=== PATIENT | female | born 1965 | race Caucasian/White ===

== ENCOUNTER → 2019-02-16 | Outpatient (CLI) | payer OTHER ==
[2019-02-16 09:40] VITALS: BP 130/86; PULSE 70; RESP 18; TEMP 98; BMI 23.8
--- NOTE | 2019-02-16 10:15 | P.HPOB ---
History of Present Illness H&P Date: 02/16/19 Chief Complaint: The patient is here for her routine gynecologic exam. This is a 53-year-old with an LMP of October 2016. The patient is without gynecologic complaints. She denies any postmenopausal bleeding. She has occasional hot flashes and they have never been very bad. Review of Systems The patient has lost 6 pounds over the last year. She denies respiratory, cardiac, or G.I. problems. 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 She is BRCA neg for both types 1&2. History of Any Multi-Drug Resistant Organisms: None Reported Past Surgical History: Section, Tubal Ligation Additional Past Surgical History / Comment(s): 2. Breast biopsies. 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 She is expecting her fourth grandchild in 2019. - Past Family History Sister(s) Family Medical History: Cancer Additional Family Medical History / Comment(s): Breast cancer. Mother Family Medical History: Cancer Additional Family Medical History / Comment(s): Breast cancer. Maternal aunt also had breast cancer. A maternal cousin had ovarian cancer. Brother(s) Family Medical History: Myocardial Infarction ([place]) Father Family Medical History: Congestive Heart Failure (CHF), Diabetes Mellitus Medications and Allergies Home Medications Medication Instructions Recorded Confirmed Type Aspirin 81 mg PO DAILY 02/16/19 02/16/19 History Lisinopril [Prinivil] 5 mg PO HS 02/16/19 02/16/19 History Simvastatin [Zocor] 20 mg PO HS 02/16/19 02/16/19 History Allergies Allergy/AdvReac Type Severity Reaction Status Date / Time latex Allergy Unknown Unverified 02/16/19 09:31 codeine AdvReac Unknown Unverified 02/16/19 09:31 Exam Vital Signs Temp Pulse Resp BP Pulse Ox 02/16/19 09:35 98.0 F 70 18 130/86 99 Intake and Output 02/15/19 02/16/19 02/16/19 22:59 06:59 14:59 Other: Weight 57.153 kg Height 5 feet 1 inch, weight 126 pounds, BMI 23.8. This is a well-developed well-nourished white female who is alert and oriented times 3 in no acute distress. HEENT: Within normal limits. NECK: Supple without mass or thyromegaly. CHEST AND LUNGS: Clear to auscultation. HEART: Regular rate and rhythm. BREASTS: Are without mass or discharge. AXILLARY EXAM: Negative for adenopathy. BACK: Negative for CVA tenderness. ABDOMEN: Soft, nontender, without palpable masses. PELVIC EXAM: Normal external genitalia. Cervix and vagina appear normal with mild atrophy. The cervix appears nulliparous. There is no unusual discharge. There is no evidence of prolapse. The uterus is midposition, nongravid size and nontender. There are no palpable adnexal masses or tenderness. RECTAL EXAM: Rectovaginal exam is negative for mass or tenderness and is negative for occult blood. EXTREMITIES: Nontender. IMPRESSION: 1. 53-year-old menopausal female with normal gynecologic exam. PLAN: 1. Pap smear was performed. 2. Self breast awareness was discussed with the patient. 3. Screening mammogram is due and she states she has an appointment at [facility] for this today. The order slip was given to the patient for this. 4. Osteoporosis prevention was discussed. I have stressed the importance of adequate calcium, vitamin D and regular exercise. Recommended amounts of calcium and vitamin D were also discussed. 5. I have recommended screening colonoscopy based on her age. She will talk to Dr. Roblero about this and see if this can be arranged through his office. 6. She was advised to return in one year for her annual well woman exam.
== END | disposition home or self-care (01) ==
LOC: WWCWWP 09:04
PROVIDERS: ATTEND Obstetrics & Gynecology
DX: Z53.9 Procedure and treatment not carried out, unspecified reason (principal)

== ENCOUNTER → 2020-06-20 | Outpatient (CLI) | payer OTHER ==
[2020-06-20 10:31] VITALS: BP 118/77; PULSE 69; RESP 18; TEMP 98.1
--- NOTE | 2020-06-20 11:22 | P.HPOB ---
History of Present Illness H&P Date: 06/20/20 Chief Complaint: The patient is here for her routine gynecologic exam. This is a 54-year-old with an LMP of 2017. The patient is without gynecologic complaints and denies any postmenopausal bleeding. She does have occasional hot flashes which are not very bad. She has been using the form of Coconut oil it helps with vaginal dryness. Review of Systems The patient's weight has been stable over the last year. She denies respiratory, cardiac, or G.I. problems. 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 She is BRCA neg for both types 1&2. History of Any Multi-Drug Resistant Organisms: None Reported Past Surgical History: Section, Tubal Ligation Additional Past Surgical History / Comment(s): 2. Breast biopsies. 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 - Past Family History Sister(s) Family Medical History: Cancer Additional Family Medical History / Comment(s): Breast cancer. Mother Family Medical History: Cancer Additional Family Medical History / Comment(s): Breast cancer. Maternal aunt also had breast cancer. A maternal cousin had ovarian cancer. Brother(s) Family Medical History: Myocardial Infarction ([place]) Father Family Medical History: Congestive Heart Failure (CHF), Diabetes Mellitus Medications and Allergies Home Medications Medication Instructions Recorded Confirmed Type Aspirin 81 mg PO HS 02/16/19 06/20/20 History Simvastatin [Zocor] 20 mg PO HS 02/16/19 06/20/20 History lisinopriL [Prinivil] 5 mg PO HS 02/16/19 06/20/20 History Calcium Carbonate/Vitamin D3 1,200 mg PO DAILY 06/20/20 06/20/20 History [Calcium 500-Vit D3 15 Mcg (600 Iu)] Allergies Allergy/AdvReac Type Severity Reaction Status Date / Time latex Allergy Unknown Unverified 06/20/20 10:26 codeine AdvReac Unknown Unverified 06/20/20 10:26 Exam Vital Signs Temp Pulse Resp BP Pulse Ox 06/20/20 10:28 98.1 F 69 18 118/77 100 Intake and Output 06/19/20 06/20/20 06/20/20 22:59 06:59 14:59 Other: Weight 57.606 kg Height 5 feet and 1/2 inch, weight 127 pounds, BMI 24.4. This is a well-developed well-nourished white female who is alert and oriented times 3 in no acute distress. HEENT: Within normal limits. NECK: Supple without mass or thyromegaly. CHEST AND LUNGS: Clear to auscultation. HEART: Regular rate and rhythm. BREASTS: Are without mass or discharge. AXILLARY EXAM: Negative for adenopathy. BACK: Negative for CVA tenderness. ABDOMEN: Soft, nontender, without palpable masses. PELVIC EXAM: Normal external genitalia with mild atrophy. Cervix and vagina appear normal old atrophy. The cervix appears nulliparous without lesions. There is no unusual discharge. There is no evidence of prolapse. The uterus is midposition, nongravid size and nontender. There are no palpable adnexal masses or tenderness. RECTAL EXAM: Rectovaginal exam is negative for mass or tenderness and is negative for occult blood. EXTREMITIES: Nontender. IMPRESSION: 1. A 54-year-old menopausal female with normal gynecologic exam. 2. Vaginal dryness with sexual intercourse improved with Coconut oil. 3. Strong family history of breast and ovarian cancer. The patient has tested negative for BRCA1 and 2. PLAN: 1. Pap smear was deferred since she had a normal one on 02/16/2019. 2. Self breast awareness was discussed with the patient. 3. Screening mammogram is due and she has them done at [facility]. The order slip was given to the patient for this. 4. Osteoporosis prevention was discussed. I have stressed the importance of adequate calcium, vitamin D and regular exercise. Recommended amounts of calcium and vitamin D were also discussed. 5. Colorectal cancer screening was discussed. She states she had a Cologuard testing which was normal in 2019. She will do screening through her PCP. 6. She was advised to return in one year for her annual well woman exam.
== END | disposition home or self-care (01) ==
LOC: WWCWWP 10:05
PROVIDERS: ATTEND Obstetrics & Gynecology
DX: Z53.9 Procedure and treatment not carried out, unspecified reason (principal)

== ENCOUNTER → 2021-07-23 | Outpatient (CLI) | payer OTHER ==
[2021-07-23 16:10] VITALS: BP 137/81; PULSE 81; RESP 17; TEMP 98.1
--- NOTE | 2021-07-23 17:23 | P.HPOB ---
History of Present Illness H&P Date: 07/23/21 Chief Complaint: The patient is here for her routine gynecologic exam. This is a 56-year-old with an LMP of 2017. She has noticed a continual decrease in libido over the past few years and now says her libido is 0. She does have slight discomfort with sexual intercourse and this is usually noticed upon penetration. She does use lubrication. Hot flashes are not a problem. She states she does achieve orgasm when she is sexually active. She is interested in some form of hormone replacement therapy because the decreased libido affects her quality of life. She has had infrequent urinary tract infections during her life, but when it happens it does become a big problem if she cannot be treated right away. She is requesting to have a course of antibiotics to treat a UTI available to her. She experienced a UTI within the last few months when she traveled to [place] and this became a problem since she was not able to get treatment for this right away. Review of Systems The patient's weight has been stable over the last year. She denies respiratory, cardiac, or G.I. problems. 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 She is BRCA neg for both types 1&2. History of Any Multi-Drug Resistant Organisms: None Reported Past Surgical History: Section, Tubal Ligation Additional Past Surgical History / Comment(s): 2. Breast biopsies. 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 - Past Family History Sister(s) Family Medical History: Cancer Additional Family Medical History / Comment(s): Breast cancer. Mother Family Medical History: Cancer Additional Family Medical History / Comment(s): Breast cancer. Maternal aunt also had breast cancer. A maternal cousin had ovarian cancer. Brother(s) Family Medical History: Myocardial Infarction ([place]) Father Family Medical History: Congestive Heart Failure (CHF), Diabetes Mellitus Medications and Allergies Home Medications Medication Instructions Recorded Confirmed Type Aspirin 81 mg PO HS 02/16/19 07/23/21 History Simvastatin [Zocor] 20 mg PO HS 02/16/19 07/23/21 History lisinopriL [Prinivil] 5 mg PO HS 02/16/19 07/23/21 History Calcium Carbonate/Vitamin D3 1,200 mg PO DAILY 06/20/20 07/23/21 History [Calcium 500-Vit D3 15 Mcg (600 Iu)] Allergies Allergy/AdvReac Type Severity Reaction Status Date / Time latex Allergy Unknown Unverified 07/23/21 15:58 codeine AdvReac Unknown Unverified 07/23/21 15:58 Exam Vital Signs Temp Pulse Resp BP Pulse Ox 07/23/21 16:00 98.1 F 81 17 137/81 100 Intake and Output 07/23/21 07/23/21 07/23/21 06:59 14:59 22:59 Other: Weight 58.06 kg Height 5 feet 1/2 inch, weight 128 pounds, BMI 24.6. This is a well-developed well-nourished white female who is alert and oriented times 3 in no acute distress. HEENT: Within normal limits. NECK: Supple without mass or thyromegaly. CHEST AND LUNGS: Clear to auscultation. HEART: Regular rate and rhythm. BREASTS: Are without mass or discharge. AXILLARY EXAM: Negative for adenopathy. BACK: Negative for CVA tenderness. ABDOMEN: Soft, nontender, without palpable masses. PELVIC EXAM: Normal external genitalia with mild atrophy. Cervix and vagina appear normal with mild atrophy. The cervix appears nulliparous. There is no unusual discharge. There is no evidence of prolapse. The uterus is midposition, nongravid size and nontender. There are no palpable adnexal masses or tenderness. RECTAL EXAM: Rectovaginal exam is negative for mass or tenderness and is negative for occult blood. EXTREMITIES: Nontender. IMPRESSION: 1. 56-year-old menopausal female with normal gynecologic exam. 2. Hypoactive sexual desire disorder with no significant physical findings on exam. 3. Mild dyspareunia secondary to genital atrophy. PLAN: 1. Pap smear cotest was performed. 2. Self breast awareness was discussed with the patient. We have also discussed symptoms associated with inflammatory breast cancer. 3. Diagnostic mammogram is due and the order slip was given to the patient for this. She has these done at [facility]. She has an appointment upcoming. 4. We have had a long discussion regarding hypoactive sexual desire disorder. We have discussed various options. She would like to try a very low-dose of estrogen in the form of estradiol vaginal cream 1 g into the vagina 2 times weekly. We will see if this helps with the slightest dyspareunia upon penetration and also see if this helps with her decreased libido. She will call in 2-3 months to let me know how she is doing with this. If it has been no significant improvement, we can consider low-dose HRT. We have had long dis cussion regarding possible risks of HRT including the possible increased risk for heart attack, stroke, and breast cancer. She understands these things and would like to have a trial of the estrogen vaginal cream. Estrace vaginal cream electronic prescription will be sent to [facility] pharmacy. 5. Macrobid one by mouth twice a day 7 days which can be started at the onset of UTI symptoms. The electronic prescription will be sent to [facility] pharmacy with 1 refill. 6. She has had her Covid vaccinations. 7.Osteoporosis prevention was discussed. I have stressed the importance of adequate calcium, vitamin D and regular exercise. Recommended amounts of calcium and vitamin D were also discussed. 8. She was advised to return in one year for her annual well woman exam and as needed.
== END ==
LOC: WWCWWP 15:49
PROVIDERS: ATTEND Obstetrics & Gynecology
DX: Z01.419 Encounter for gynecological examination (general) (routine) without abnormal findings (principal); N94.10 Unspecified dyspareunia; N90.5 Atrophy of vulva; E78.5 Hyperlipidemia, unspecified; I10 Essential (primary) hypertension; Z79.899 Other long term (current) drug therapy; Z91.040 Latex allergy status; Z88.5 Allergy status to narcotic agent

== ENCOUNTER → 2022-08-12 | Outpatient (CLI) | payer OTHER ==
[2022-08-12 15:22] VITALS: BP 120/70; PULSE 76; RESP 17; TEMP 98
--- NOTE | 2022-08-12 16:41 | P.HPOB ---
History of Present Illness H&P Date: 08/12/22 Chief Complaint: The patient is here for her routine gynecologic exam. This is a 57-year-old with an LMP of 2017. The patient is sexually active and has been having some issues where it feels like she may have slight vulvar tears after intercourse. She uses a lubricant liberally. She did have a trial of HRT last year to see if it helps with her sexual desired, but she did not notice any improvement so she discontinued it after 3 months. She has had occasional urinary tract infections which have been a problem when she is out of state on vacation. She is not having current UTI symptoms, but is requesting a prescription that she can take with her on her upcoming vacation. Review of Systems The patient's weight has been stable over the last year. She denies respiratory, cardiac, or G.I. problems. 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 She is BRCA neg for both types 1&2. History of Any Multi-Drug Resistant Organisms: None Reported Past Surgical History: Section, Tubal Ligation Additional Past Surgical History / Comment(s): 2. Breast biopsies. Past Psychological History: No Psychological Hx Reported Smoking Status: Never smoker Past Alcohol Use History: Occasional (0 to one per month) Past Drug Use History: None Reported Additional History: She has been since 1982 and is sexually active. She watches some of her grandchildren during the week. - Past Family History Sister(s) Family Medical History: Cancer Additional Family Medical History / Comment(s): Breast cancer. Mother Family Medical History: Cancer Additional Family Medical History / Comment(s): Breast cancer. Maternal aunt also had breast cancer. A maternal cousin had ovarian cancer. Brother(s) Family Medical History: Myocardial Infarction ([place]) Father Family Medical History: Congestive Heart Failure (CHF), Diabetes Mellitus Medications and Allergies Home Medications Medication Instructions Recorded Confirmed Type Aspirin 81 mg PO HS 02/16/19 08/12/22 History Simvastatin [Zocor] 20 mg PO HS 02/16/19 08/12/22 History lisinopriL [Prinivil] 5 mg PO HS 02/16/19 08/12/22 History Calcium Carbonate/Vitamin D3 1,200 mg PO DAILY 06/20/20 08/12/22 History [Calcium 500-Vit D3 15 Mcg (600 Iu)] Acetaminophen [Tylenol] 325 mg PO DIRECTED PRN 08/12/22 08/12/22 History Allergies Allergy/AdvReac Type Severity Reaction Status Date / Time latex Allergy Unknown Unverified 08/12/22 15:14 codeine AdvReac Unknown Unverified 08/12/22 15:14 Exam Vital Signs Temp Pulse Resp BP Pulse Ox 08/12/22 15:19 98.0 F 76 17 120/70 100 Intake and Output 08/12/22 08/12/22 08/12/22 06:59 14:59 22:59 Other: Weight 58.967 kg Height 5 foot 1 inch, weight 130 pounds, BMI 24.6. This is a well-developed well-nourished white female who is alert and oriented times 3 in no acute distress. HEENT: Within normal limits. NECK: Supple without mass or thyromegaly. CHEST AND LUNGS: Clear to auscultation. HEART: Regular rate and rhythm. BREASTS: Are without mass or discharge. AXILLARY EXAM: Negative for adenopathy. BACK: Negative for CVA tenderness. ABDOMEN: Soft, nontender, without palpable masses. PELVIC EXAM: Normal external genitalia reveals mild to moderate atrophy without lesions. Cervix and vagina appear normal with mild to moderate atrophy. There is no unusual discharge. There is no evidence of prolapse. The uterus is midposition, nongravid size and nontender. There are no palpable adnexal masses or tenderness. RECTAL EXAM: Rectovaginal exam is negative for mass or tenderness and is negative for occult blood. EXTREMITIES: Nontender. IMPRESSION: 1. 57-year-old menopausal female with normal gynecologic exam. 2. Dyspareunia with the feeling of vulvar tearing associated with sexual intercourse probably secondary to genital atrophy. No significant physical findings on exam today other than genital atrophy. PLAN: 1. Pap smear was deferred since she had a negative Pap smear cotest on 07/23/2021. 2. Self breast awareness was discussed with the patient. We have also discussed symptoms associated with inflammatory breast cancer. 3. Screening mammogram is due and the order slip was given to the patient for this. She plans to have this done at [facility]. 4. Osteoporosis prevention was discussed. I have stressed the importance of adequate calcium, vitamin D and regular exercise. Recommended amounts of calcium and vitamin D were also discussed. We will plan on doing bone density testing at age 59. 5. We have had a long discussion regarding the sensation that there can be slight vulvar tears associated with intercourse. She has asked if there is anything that can be done surgically to help with this. I do not know of any surgical procedure that can help with this. I do feel that local estrogen to the genital area would be most helpful and increasing elasticity and helping with vaginal dryness and discomfort associated with sexual intercourse. We have discussed various types of estrogen that can be used for this. We will have a trial of Premarin vaginal cream. One sample tube was given to the patient. The maintenance dose will be 1 g twice weekly. She continues as every other day for the first 2 weeks for more rapid results. She denies also apply small amount of the vulva around the vaginal opening. The electronic prescription will be sent to [facility]. 6. A prescription for Macrobid 1 by mouth twice a day 7 days will be sent to [facility] in [facility] as well. She will use this at the first signs of UTI symptoms. One refill will be given. 7. She was advised to return in one year for her annual well woman exam and as needed.
== END ==
LOC: WWCWWP 15:04
PROVIDERS: ATTEND Obstetrics & Gynecology
DX: Z01.419 Encounter for gynecological examination (general) (routine) without abnormal findings (principal); E78.5 Hyperlipidemia, unspecified; I10 Essential (primary) hypertension; Z91.040 Latex allergy status; Z88.5 Allergy status to narcotic agent

== ENCOUNTER → 2023-08-26 | Outpatient (CLI) | payer OTHER ==
[2023-08-26 09:55] VITALS: BP 116/80; PULSE 74; RESP 17; TEMP 98.1
--- NOTE | 2023-08-26 10:19 | P.HPOB ---
History of Present Illness H&P Date: 08/26/23 Chief Complaint: The patient is here for her routine gynecologic exam. This is a 58-year-old with an LMP of 2017. Patient states she has been using the estradiol vaginal cream which has been helpful. She is without gynecologic complaints. Review of Systems The patient's weight has been stable over the last year. She denies respiratory, cardiac, or G.I. problems. Past Medical History Past Medical History: Hyperlipidemia, Hypertension Additional Past Medical History / Comment(s): PAST INTERNAL [employer] INS[employer]OR HISTORY: She has no history of STDs. She is BRCA neg for both types 1&2. History of Any Multi-Drug Resistant Organisms: None Reported Past Surgical History: Section, Tubal Ligation Additional Past Surgical History / Comment(s): 2. Breast biopsies. Past Psychological History: No Psychological Hx Reported Smoking Status: Never smoker Past Alcohol Use History: Occasional (0-1 drink per month.) Past Drug Use History: None Reported Additional History: She has been since 1982. She watches her grandchild during the week. Her was recently diagnosed with prostate cancer. - Past Family History Sister(s) Family Medical History: Cancer Additional Family Medical History / Comment(s): Breast cancer. Mother Family Medical History: Cancer Additional Family Medical History / Comment(s): Breast cancer. Maternal aunt also had breast cancer. A maternal cousin had ovarian cancer. Brother(s) Family Medical History: Myocardial Infarction ([place]) Father Family Medical History: Congestive Heart Failure (CHF), Diabetes Mellitus Medications and Allergies Home Medications Medication Instructions Recorded Confirmed Type Aspirin 81 mg PO HS 02/16/19 08/26/23 History Simvastatin [Zocor] 20 mg PO HS 02/16/19 08/26/23 History lisinopriL [Prinivil] 5 mg PO HS 02/16/19 08/26/23 History Calcium Carbonate/Vitamin D3 1,200 mg PO DAILY 06/20/20 08/26/23 History [Calcium 500-Vit D3 15 Mcg (600 Iu)] Acetaminophen [Tylenol] 325 mg PO DIRECTED PRN 08/12/22 08/26/23 History Estrogens, Conjugated Cream 1 applicator VAGINAL DIRECTED 08/12/22 08/26/23 Rx [Premarin Vaginal Cream] #42.5 gm Allergies Allergy/AdvReac Type Severity Reaction Status Date / Time latex Allergy Unknown Unverified 08/26/23 09:10 codeine AdvReac Unknown Unverified 08/26/23 09:10 Exam Vital Signs Temp Pulse Resp BP Pulse Ox 08/26/23 09:12 98.1 F 74 17 116/80 99 Intake and Output 08/25/23 08/26/23 08/26/23 22:59 06:59 14:59 Other: Weight 58.967 kg Height 5 foot 1 inch, weight 130 pounds, BMI 24.6. This is a well-developed well-nourished white female who is alert and oriented times 3 in no acute distress. HEENT: Within normal limits. NECK: Supple without mass or thyromegaly. CHEST AND LUNGS: Clear to auscultation. HEART: Regular rate and rhythm. BREASTS: Are without mass or discharge. AXILLARY EXAM: Negative for adenopathy. BACK: Negative for CVA tenderness. ABDOMEN: Soft, nontender, without palpable masses. PELVIC EXAM: Normal external genitalia mild atrophy. Cervix and vagina appear normal with mild atrophy. There is no unusual discharge. There is no evidence of prolapse. The uterus is midposition, nongravid size and nontender. There are no palpable adnexal masses or tenderness. RECTAL EXAM: Rectovaginal exam is negative for mass or tenderness and is negative for occult blood. EXTREMITIES: Nontender. IMPRESSION: 1. 58-year-old menopausal female with normal gynecologic exam. 2. Doing well with estradiol vaginal cream PLAN: 1. Pap smear was deferred since she had a negative Pap smear cotest on 07/23/2021. 2. Self breast awareness was discussed with the patient. We have also discussed symptoms associated with inflammatory breast cancer. 3. Screening mammogram will be due in October. The order slip was given to the patient for this. She plans to go to [facility] for this. 4. Osteoporosis prevention was discussed. I have stressed the importance of adequate calcium, vitamin D and regular exercise. Recommended amounts of calcium and vitamin D were also discussed. Will plan on doing a bone density test in 1 year at age 59. 5. Continue estradiol vaginal cream. The electronic prescription will be sent to [facility] pharmacy. 6. She has done colorectal cancer screening through her PCP and has not used Cologuard testing for this. 7. She was advised to return in one year for her annual well woman exam.
--- NOTE | 2023-08-26 10:31 | P.PN ---
Progress Note - Text Progress Note Date: 08/26/23 The patient has been using estradiol vaginal cream, not Premarin vaginal cream. Electronic prescription will be sent in as estradiol vaginal cream, 1 g into the vagina 2 times weekly.
== END ==
LOC: WWCWWP 09:01
PROVIDERS: ATTEND Obstetrics & Gynecology
DX: Z01.419 Encounter for gynecological examination (general) (routine) without abnormal findings (principal); Z78.0 Asymptomatic menopausal state; Z80.3 Family history of malignant neoplasm of breast; Z88.5 Allergy status to narcotic agent; Z91.040 Latex allergy status; Z98.51 Tubal ligation status